=== PATIENT | male | born 1955 | race Caucasian/White ===

== ENCOUNTER 2025-06-14 06:28 | Day surgery (SDC) | payer MEDICARE ==
[2025-06-14] MEDS ORDERED: Lactated Ringers 1,000 ML IV ONE (06:29)
[2025-06-14] MEDS ORDERED: Propofol 200 MG/20 ML SDV IV ONE (06:29)
[2025-06-14] MEDS: Lactated Ringers 1,000 ML IV SCH (07:25)
[2025-06-14 09:00] VITALS: BP 115/74; PULSE 61
[2025-06-14] MEDS ORDERED: Propofol 200 MG/20 ML SDV ONE (09:38)
== END 2025-06-14 09:20 | disposition home or self-care (01) ==
LOC: DL.ENDO 06:28
PROVIDERS: ATTEND Internal Medicine Gastroenterology
DX: Z12.11 Encounter for screening for malignant neoplasm of colon (principal); E78.5 Hyperlipidemia, unspecified; E11.9 Type 2 diabetes mellitus without complications; Z79.899 Other long term (current) drug therapy
CPT/HCPCS: 82947; J2704; J7120